=== PATIENT | female | born 1990 | race Two or more races ===

== ENCOUNTER → 2017-07-22 | Outpatient (CLI) | payer BC ==
[2017-07-22 10:18] LABS: Basophils # (auto) 0 uL; Basophils % (auto) 0.2 % (0.0-2.0); Eosinophils # (auto) 0.4 uL; Eosinophils % (auto) 4.4 % (0.0-7.0); Hematocrit 41.3 % (36.0-46.0); Lymphocytes # (auto) 1.6 uL; Lymphocytes % (auto) 17.7 % (10.0-50.0); Mean Corpuscular Hemoglobin 29.9 pg (28.0-32.0); Monocytes # (auto) 0.5 uL; Monocytes % (auto) 5.1 % (0.0-12.0); Neutrophils # (auto) 6.4 uL; Neutrophils % (auto) 72.6 % (37.0-80.0); Platelet Count (auto) 322 10^3/uL (140-450); Red Blood Cells 4.69 10^6/uL (4.0-5.20); Red Cell Distribution Width 13.8 % (11.8-14.3); White Blood Cell 8.9 10^3/uL (4.4-10.8)
[2017-07-22 10:56] LABS: Albumin 3.4 g/dL (3.4-5.0); Bilirubin, Direct 0.1 mg/dL (0-0.2); Bilirubin, Total 0.4 mg/dL (0.2-1.0); Total Protein 8.7 g/dL (6.4-8.2)
== END | disposition home or self-care (01) ==
LOC: LAB 09:36
PROVIDERS: ATTEND Obstetrics & Gynecology
DX: Z34.80 Encounter for supervision of other normal pregnancy, unspecified trimester (principal); Z20.2 Contact with and (suspected) exposure to infections with a predominantly sexual mode of transmission; Z3A.00 Weeks of gestation of pregnancy not specified
CPT/HCPCS: 36415; 80076; 83036; 84702; 85025; 86762; 86850; 86900; 86901; 87086; 87340; 87591

== ENCOUNTER → 2017-09-02 | Outpatient (CLI) | payer BC ==
[2017-09-02 11:53] LABS: Alcohol, Urine < 3.0 mg/dL (0-5); Amphetamine Screen, Urine NEGATIVE (NEGATIVE); Barbiturate Scree,Urine NEGATIVE (NEGATIVE); Benzodiazephine Screen, Urine NEGATIVE (NEGATIVE); Cannabinoid Screen, Urine NEGATIVE (NEGATIVE); Cocaine Screen, Urine NEGATIVE (NEGATIVE); Opiate Scree,Urine NEGATIVE (NEGATIVE); Phencyclidine Screen, Urine NEGATIVE (NEGATIVE)
== END | disposition home or self-care (01) ==
LOC: LAB 10:12
PROVIDERS: ATTEND Specialist
DX: O99.810 Abnormal glucose complicating pregnancy (principal); Z3A.00 Weeks of gestation of pregnancy not specified
CPT/HCPCS: 36415; 80307; 82951

== ENCOUNTER → 2017-09-23 | Outpatient (CLI) | payer BC ==
[2017-09-23 13:04] LABS: Alcohol, Urine < 3.0 mg/dL (0-5); Amphetamine Screen, Urine NEGATIVE (NEGATIVE); Barbiturate Scree,Urine NEGATIVE (NEGATIVE); Benzodiazephine Screen, Urine NEGATIVE (NEGATIVE); Cannabinoid Screen, Urine NEGATIVE (NEGATIVE); Cocaine Screen, Urine NEGATIVE (NEGATIVE); Opiate Scree,Urine NEGATIVE (NEGATIVE); Phencyclidine Screen, Urine NEGATIVE (NEGATIVE)
== END | disposition home or self-care (01) ==
LOC: LAB 11:07
PROVIDERS: ATTEND Specialist
DX: Z34.80 Encounter for supervision of other normal pregnancy, unspecified trimester (principal); Z3A.00 Weeks of gestation of pregnancy not specified
CPT/HCPCS: 80307

== ENCOUNTER 2018-02-02 22:40 | Observation (INO) | payer BC ==
[~2018-02-02] VITALS: Ht 165.1 cm; Wt 88.9 kg
[2018-02-02] MEDS ORDERED: LACTATED RINGER'S 1,000 ML IV ONE (23:23)
[2018-02-03] MEDS ORDERED: TERBUTALINE SULFATE 1 MG/ML 1ML VIAL SC ONE (00:07)
[2018-02-03] MEDS: TERBUTALINE SULFATE 1 MG/ML 1ML VIAL SC SCH ×2 (00:10→01:08)
== END 2018-02-03 01:47 | disposition home or self-care (01) | DRG 778 ==
LOC: LDRP 22:40
PROVIDERS: ADMIT Specialist; ATTEND Specialist
DX: O60.03 Preterm labor without delivery, third trimester (principal); Z3A.36 36 weeks gestation of pregnancy
CPT/HCPCS: 59025; 81002; 96360; 96361; 96372; G0378; J3105; 96365; 96366

== ENCOUNTER → 2018-02-10 | Outpatient (CLI) | payer BC ==
[~2018-02-10] MED LIST: PREN-96 PO
[2018-02-10 09:47] LABS: Basophils # (auto) 0 uL; Eosinophils # (auto) 0.2 uL; Hemoglobin 9.1 g/dL (12.2-16.2); Monocytes # (auto) 0.5 uL; Nucleated Red Blood Cells % 0.1 %
[2018-02-10 09:49] LABS: Basophils % (auto) 0.3 % (0.0-2.0); Eosinophils % (auto) 2.8 % (0.0-7.0); Hematocrit 27.6 % (36.0-46.0); Lymphocytes # (auto) 1.5 uL; Lymphocytes % (auto) 20.5 % (10.0-50.0); Mean Corpuscular Hemoglobin 23.8 pg (28.0-32.0); Mean Corpuscular Hgb Conc. 32.9 g/dL (32.0-36.0); Mean Corpuscular Volume 72.2 fL (80.0-100.0); Monocytes % (auto) 6.7 % (0.0-12.0); Neutrophils # (auto) 5.3 uL; Neutrophils % (auto) 69.7 % (37.0-80.0); Platelet Count (auto) 226 10^3/uL (140-450); Red Blood Cells 3.83 10^6/uL (4.0-5.20); Red Cell Distribution Width 16.2 % (11.8-14.3); White Blood Cell 7.6 10^3/uL (4.4-10.8)
[2018-02-11 06:05] LABS: RPR Non Reactive (Non Reactive)
== END | disposition home or self-care (01) ==
LOC: LAB 08:25
PROVIDERS: ATTEND Specialist
DX: O23.593 Infection of other part of genital tract in pregnancy, third trimester (principal); O99.810 Abnormal glucose complicating pregnancy; Z3A.37 37 weeks gestation of pregnancy
CPT/HCPCS: 36415; 85025; 86592; 87081; 87088; 87186

== ENCOUNTER 2018-02-24 13:10 | Observation (INO) | payer BC | END 2018-02-24 14:00 | disposition home or self-care (01) | DRG 782 | LOC: LDRP 13:10 | PROVIDERS: ADMIT Obstetrics & Gynecology; ATTEND Obstetrics & Gynecology | DX: O13.3 Gestational [pregnancy-induced] hypertension without significant proteinuria, third trimester (principal); O62.9 Abnormality of forces of labor, unspecified; R22.43 Localized swelling, mass and lump, lower limb, bilateral; Z3A.39 39 weeks gestation of pregnancy | CPT/HCPCS: 59025; 81002; G0378 ==

== ENCOUNTER 2018-02-28 20:55 | Inpatient (IN) | payer BC ==
[2018-02-28] MEDS ORDERED: LACT. RINGERS/OXYTOCIN 20UNITS 1,000 ML IV SCH (21:23)
[2018-02-28] MEDS ORDERED: LACTATED RINGER'S 1,000 ML IV SCH (21:23)
[2018-02-28] MEDS ORDERED: WITCH HAZEL-GLYCERIN PAD TOP PRN (21:30)
[2018-02-28] MEDS ORDERED: LIDOCAINE 2% (LOCAL ANESTH.) PF 5ml SDV IJ ONE (21:30)
[2018-02-28] MEDS ORDERED: PROMETHAZINE HCL 25 MG/ML 1ML IV PRN (21:30)
[2018-02-28] MEDS ORDERED: DERMOPLAST 60ML BOTTLE TOP PRN (21:30)
[2018-02-28] MEDS ORDERED: PENICILLIN G POT 5MIL/D5 50ML 50 ML IV ONE (21:30)
[2018-02-28] MEDS ORDERED: METHYLERGONOVINE MALEATE 0.2 MG/ML AMP IM PRN (21:30)
[2018-02-28] MEDS ORDERED: PHISODERM TOP SOLN 240ML BTL TOP PRN (21:30)
[2018-02-28] MEDS ORDERED: NALBUPHINE HCL 10 MG/1ml INJECTION IV PRN (21:30)
[2018-03-01] MEDS ORDERED: PENICILLIN G POTASSIUM 2,500,000 UNITS in D5W 5% 50 ML IV SCH (01:30)
== END 2018-02-28 22:46 | disposition home or self-care (01) | DRG 781 ==
LOC: LDRP 20:55
PROVIDERS: ADMIT Specialist; ATTEND Specialist
DX: O26.893 Other specified pregnancy related conditions, third trimester (principal); Z3A.39 39 weeks gestation of pregnancy
CPT/HCPCS: 59025; J7060

== ENCOUNTER 2018-03-01 01:05 | Observation (INO) | payer BC ==
[2018-03-02] MEDS ORDERED: PREN-96 PO (20:30)
== END 2018-03-01 01:18 | disposition home or self-care (01) | DRG 782 ==
LOC: LDRP 01:05
PROVIDERS: ADMIT Specialist; ATTEND Specialist
DX: O62.9 Abnormality of forces of labor, unspecified (principal); Z3A.39 39 weeks gestation of pregnancy
CPT/HCPCS: G0378

== ENCOUNTER 2018-03-01 10:00 | Inpatient (IN) | payer BC, MEDICAID ==
[~2018-03-01] VITALS: Ht 157.5 cm; Wt 91.2 kg
[2018-03-01] MEDS: LACTATED RINGER'S 1,000 ML IV SCH ×2 (10:35→14:41)
[2018-03-01] MEDS ORDERED: LACT. RINGERS/OXYTOCIN 20UNITS 1,000 ML IV SCH ×2 (11:16→16:39)
[2018-03-01] MEDS ORDERED: CARBOPROST TROMETHAMINE 250 MCG/1ML VIAL IM PRN (11:30)
[2018-03-01] MEDS ORDERED: LIDOCAINE 2% (LOCAL ANESTH.) PF 5ml SDV ID ONE (11:30)
[2018-03-01] MEDS ORDERED: NALBUPHINE HCL 10 MG/1ml INJECTION IV PRN (11:30)
[2018-03-01] MEDS ORDERED: DERMOPLAST 60ML BOTTLE TOP PRN (11:30)
[2018-03-01] MEDS ORDERED: WITCH HAZEL-GLYCERIN PAD TOP PRN (11:30)
[2018-03-01] MEDS ORDERED: PHISODERM TOP SOLN 240ML BTL TOP PRN (11:30)
[2018-03-01] MEDS ORDERED: METHYLERGONOVINE MALEATE 0.2 MG/ML AMP IM PRN (11:30)
[2018-03-01] MEDS ORDERED: LIDOCAINE 1% (LOCAL ANESTH.) PF 5ml SDV IJ ONE (11:30)
[2018-03-01] MEDS ORDERED: PENICILLIN G POT 5MIL/D5 50ML 50 ML IV ONE (11:45)
[2018-03-01 12:45] LABS: Basophils # (auto) 0 uL; Hemoglobin 8.7 g/dL (12.2-16.2); Mean Corpuscular Hemoglobin 22.9 pg (28.0-32.0); Monocytes # (auto) 0.4 uL; Red Blood Cells 3.81 10^6/uL (4.0-5.20)
[2018-03-01 12:47] LABS: Basophils % (auto) 0.3 % (0.0-2.0); Eosinophils # (auto) 0.1 uL; Eosinophils % (auto) 2.4 % (0.0-7.0); Hematocrit 26.9 % (36.0-46.0); Lymphocytes # (auto) 1.2 uL; Lymphocytes % (auto) 20.2 % (10.0-50.0); Mean Corpuscular Hgb Conc. 32.5 g/dL (32.0-36.0); Mean Corpuscular Volume 70.5 fL (80.0-100.0); Monocytes % (auto) 6.5 % (0.0-12.0); Neutrophils # (auto) 4.3 uL; Neutrophils % (auto) 70.6 % (37.0-80.0); Platelet Count (auto) 234 10^3/uL (140-450); Red Cell Distribution Width 16.8 % (11.8-14.3); White Blood Cell 6.1 10^3/uL (4.4-10.8)
[2018-03-01 12:51] LABS: Urine Bacteria MOD /hpf (None Seen); Urine Blood TRACE /uL (Negative); Urine Mucus FEW (None Seen); Urine Specific Gravity 1.011 (1.001-1.035); Urine WBC 12 /hpf (0 - 5)
[2018-03-01 13:04] LABS: INR 0.92 (0.9-1.15); Partial Thromboplastin Time 23.6 sec (23.78-33.04); Prothrombin Time 9.9 sec (9.27-12.13)
[2018-03-01 13:08] LABS: Albumin 2.4 g/dL (3.4-5.0); BUN/Creatinine Ratio 6.1; Bilirubin, Total 0.6 mg/dL (0.2-1.0); Calcium 7.7 mg/dL (8.5-10.1); Total Protein 6.7 g/dL (6.4-8.2)
[2018-03-01 13:11] LABS: Potassium 2.9 mmol/L (3.5-5.1)
[2018-03-01] MEDS ORDERED: POTASSIUM CHL 20 Meq TABLET PO ONE (13:45)
[2018-03-01] MEDS: POTASSIUM CHL 20MEQ/100ML 100 ML IV SCH ×2 (14:34→16:44)
[2018-03-01] MEDS ORDERED: NALOXONE HCL 0.4 MG/ML VIAL IV ONE (15:00)
[2018-03-01] MEDS ORDERED: fentaNYL W ROPIVACAINE 150 ML EPI SCH (15:00)
[2018-03-01] MEDS ORDERED: ePHEDrine SULFATE 50 MG/ML AMP IV ONE (15:00)
[2018-03-01] MEDS ORDERED: TERBUTALINE SULFATE 1 MG/ML 1ML VIAL SC ONE (16:45)
[2018-03-01] MEDS: PENICILLIN G POTASSIUM 2,500,000 UNITS in D5W 5% 50 ML IV SCH ×3 (16:55→23:30)
[2018-03-01] MEDS ORDERED: ONDANSETRON HCL 4 MG/2 ML VIAL ONE (18:51)
[2018-03-01] MEDS ORDERED: ONDANSETRON HCL 4 MG/2 ML VIAL IV PRN (19:00)
[2018-03-01] MEDS ORDERED: METHYLERGONOVINE MALEATE 0.2 MG/ML AMP IM ONE (21:57)
[2018-03-01] MEDS ORDERED: LACT. RINGERS/OXYTOCIN 20UNITS 1,000 ML IV ONE (23:45)
[2018-03-02] VITALS (32 sets, daily range): BP systolic 110–144; BP diastolic 64–92
[2018-03-02] MEDS ORDERED: LACT. RINGERS/OXYTOCIN 20UNITS 1,000 ML IV SCH
[2018-03-02 00:31] LABS: Basophils # (auto) 0 uL; Basophils % (auto) 0.2 % (0.0-2.0); Eosinophils # (auto) 0.1 uL; Hematocrit 26.5 % (36.0-46.0); Hemoglobin 8.2 g/dL (12.2-16.2); Lymphocytes # (auto) 1.9 uL; Lymphocytes % (auto) 14.7 % (10.0-50.0); Mean Corpuscular Hgb Conc. 31.1 g/dL (32.0-36.0); Mean Corpuscular Volume 70.8 fL (80.0-100.0); Monocytes # (auto) 0.6 uL; Monocytes % (auto) 4.3 % (0.0-12.0); Neutrophils # (auto) 10.5 uL; Neutrophils % (auto) 79.8 % (37.0-80.0); Platelet Count (auto) 228 10^3/uL (140-450); Red Blood Cells 3.74 10^6/uL (4.0-5.20); Red Cell Distribution Width 17.6 % (11.8-14.3); White Blood Cell 13.1 10^3/uL (4.4-10.8)
[2018-03-02] MEDS: ceFAZolin 1GM/50ML 50 ML IV SCH ×3 (00:44→16:19)
[2018-03-02] MEDS ORDERED: PROMETHAZINE HCL 25 MG/ML 1ML IM ONE (01:15)
[2018-03-02] MEDS: LACTATED RINGER'S 1,000 ML IV SCH ×2 (03:16→12:14)
[2018-03-02] MEDS: PENICILLIN G POTASSIUM 2,500,000 UNITS in D5W 5% 50 ML IV SCH ×2 (03:30→07:30)
[2018-03-02] MEDS: IBUPROFEN 600 MG TAB PO PRN ×4 (03:59→16:17)
[2018-03-02] MEDS ORDERED: ACETAMINOPHEN 325 MG TAB PO PRN (04:30)
[2018-03-02 06:06] LABS: RPR Non Reactive (Non Reactive)
[2018-03-02 10:19] LABS: Basophils # (auto) 0 uL; Eosinophils # (auto) 0.1 uL; Eosinophils % (auto) 0.6 % (0.0-7.0); Neutrophils # (auto) 8.8 uL
[2018-03-02] MEDS: DOCUSATE CALCIUM 240 MG CAP PO SCH (10:20)
[2018-03-02 10:21] LABS: Basophils % (auto) 0.3 % (0.0-2.0); Hematocrit 18.6 % (36.0-46.0); Lymphocytes # (auto) 1.3 uL; Lymphocytes % (auto) 11.7 % (10.0-50.0); Mean Corpuscular Hgb Conc. 32.6 g/dL (32.0-36.0); Mean Corpuscular Volume 73.4 fL (80.0-100.0); Monocytes # (auto) 0.7 uL; Monocytes % (auto) 6.1 % (0.0-12.0); Neutrophils % (auto) 81.3 % (37.0-80.0); Platelet Count (auto) 153 10^3/uL (140-450); Red Blood Cells 2.53 10^6/uL (4.0-5.20); Red Cell Distribution Width 18.8 % (11.8-14.3); White Blood Cell 10.8 10^3/uL (4.4-10.8)
[2018-03-02 10:28] LABS: Hemoglobin 6.1 g/dL (12.2-16.2)
[2018-03-02 10:54] LABS: Albumin 1.5 g/dL (3.4-5.0); BUN/Creatinine Ratio 6.3; Bilirubin, Total 0.7 mg/dL (0.2-1.0); Calcium 7.1 mg/dL (8.5-10.1); Potassium 3.3 mmol/L (3.5-5.1)
[2018-03-02] MEDS: POTASSIUM CHL 20 Meq TABLET PO SCH (12:12)
[2018-03-02] MEDS: HYDROcodone-ACET 5/325MG TAB PO PRN ×3 (13:59→23:23)
[2018-03-02] MEDS ORDERED: PREN-96 PO (20:30)
[2018-03-02 20:41] LABS: Basophils # (auto) 0 uL; Hemoglobin 8.4 g/dL (12.2-16.2); Monocytes # (auto) 0.8 uL; Neutrophils # (auto) 8.3 uL; Red Blood Cells 3.31 10^6/uL (4.0-5.20); White Blood Cell 11.1 10^3/uL (4.4-10.8)
[2018-03-02 20:43] LABS: Basophils % (auto) 0.3 % (0.0-2.0); Eosinophils # (auto) 0.3 uL; Eosinophils % (auto) 2.5 % (0.0-7.0); Hematocrit 25.5 % (36.0-46.0); Lymphocytes # (auto) 1.7 uL; Lymphocytes % (auto) 15.4 % (10.0-50.0); Mean Corpuscular Hemoglobin 25.3 pg (28.0-32.0); Mean Corpuscular Hgb Conc. 32.7 g/dL (32.0-36.0); Mean Corpuscular Volume 77.2 fL (80.0-100.0); Monocytes % (auto) 7.5 % (0.0-12.0); Neutrophils % (auto) 74.3 % (37.0-80.0); Platelet Count (auto) 174 10^3/uL (140-450)
[2018-03-02 20:57] LABS: Albumin 1.8 g/dL (3.4-5.0); BUN/Creatinine Ratio 6.8; Calcium 7.4 mg/dL (8.5-10.1); Potassium 3.5 mmol/L (3.5-5.1)
[2018-03-03] MEDS: ceFAZolin 1GM/50ML 50 ML IV SCH ×3 (00:20→16:01)
[2018-03-03 03:00] VITALS: BP 116/71
[2018-03-03] MEDS: HYDROcodone-ACET 5/325MG TAB PO PRN (03:36)
[2018-03-03] MEDS ORDERED: ASCORBIC ACID 500 MG TAB PO ONE (06:45)
[2018-03-03 06:50] VITALS: BP 105/72
[2018-03-03] MEDS: IBUPROFEN 600 MG TAB PO PRN ×5 (06:51→20:04)
[2018-03-03] MEDS: FERROUS SULFATE 325 MG TAB PO SCH ×2 (08:09→17:29)
[2018-03-03] MEDS ORDERED: ONDANSETRON HCL 4 MG/2 ML VIAL IV PRN (09:30)
[2018-03-03] MEDS: DOCUSATE CALCIUM 240 MG CAP PO SCH (10:01)
[2018-03-03] MEDS: POTASSIUM CHL 20 Meq TABLET PO SCH (10:01)
[2018-03-03 11:00] VITALS: BP 116/74
[2018-03-03 15:00] VITALS: BP 146/83
[2018-03-03 18:51] VITALS: BP 141/84
[2018-03-03 23:20] VITALS: BP 164/99
[2018-03-04] MEDS: ceFAZolin 1GM/50ML 50 ML IV SCH (00:30)
[2018-03-04] MEDS: IBUPROFEN 600 MG TAB PO PRN (03:06)
[2018-03-04 07:01] VITALS: BP 129/87
[2018-03-04] MEDS: FERROUS SULFATE 325 MG TAB PO SCH (08:00)
[2018-03-04] MEDS: LACTATED RINGER'S 1,000 ML IV SCH (08:10)
== END 2018-03-04 08:08 | disposition home or self-care (01) | DRG 774 ==
LOC: LDRP 10:00
PROVIDERS: ADMIT Specialist; ATTEND Specialist
PROC: 10E0XZZ Delivery of Products of Conception, External Approach (ICD-10-PCS; principal; 2018-03-02)
PROC: 3E0R3BZ Introduction of Anesthetic Agent into Spinal Canal, Percutaneous Approach (ICD-10-PCS; 2018-03-02)
PROC: 00HU33Z Insertion of Infusion Device into Spinal Canal, Percutaneous Approach (ICD-10-PCS; 2018-03-02)
PROC: 30233N1 Transfusion of Nonautologous Red Blood Cells into Peripheral Vein, Percutaneous Approach (ICD-10-PCS; 2018-03-02)
PROC: 30233L1 Transfusion of Nonautologous Fresh Plasma into Peripheral Vein, Percutaneous Approach (ICD-10-PCS; 2018-03-02)
PROC: 30233K1 Transfusion of Nonautologous Frozen Plasma into Peripheral Vein, Percutaneous Approach (ICD-10-PCS; 2018-03-02)
DX: O99.824 Streptococcus B carrier state complicating childbirth (principal); O73.0 Retained placenta without hemorrhage; O72.1 Other immediate postpartum hemorrhage; O90.81 Anemia of the puerperium; O75.89 Other specified complications of labor and delivery; M41.9 Scoliosis, unspecified; D64.9 Anemia, unspecified; Z37.0 Single live birth; Z3A.39 39 weeks gestation of pregnancy
CPT/HCPCS: 36415; 36430; 59025; 59409; 62282; 80053; 81001; 81002; 85025; 85610; 85730; 86592; 86850; 86900; 86901; 86920; 94760; 94762; 96365; 96366; 96372; 96375; A6257; J0690; J2001; J2405; J2540; J2590; J3010; J3480; J7060

== ENCOUNTER → 2018-03-27 | Outpatient (CLI) | payer BC, MEDICAID ==
[2018-03-27 11:45] LABS: Basophils # (auto) 0 uL; Monocytes # (auto) 0.4 uL; Neutrophils # (auto) 4.1 uL
[2018-03-27 11:47] LABS: Basophils % (auto) 0.6 % (0.0-2.0); Eosinophils # (auto) 0.4 uL; Eosinophils % (auto) 5.4 % (0.0-7.0); Hematocrit 35.2 % (36.0-46.0); Hemoglobin 11.4 g/dL (12.2-16.2); Lymphocytes # (auto) 1.9 uL; Lymphocytes % (auto) 27.9 % (10.0-50.0); Mean Corpuscular Hemoglobin 24.9 pg (28.0-32.0); Mean Corpuscular Hgb Conc. 32.3 g/dL (32.0-36.0); Mean Corpuscular Volume 77.1 fL (80.0-100.0); Monocytes % (auto) 6.4 % (0.0-12.0); Neutrophils % (auto) 59.7 % (37.0-80.0); Platelet Count (auto) 341 10^3/uL (140-450); Red Blood Cells 4.56 10^6/uL (4.0-5.20); White Blood Cell 6.8 10^3/uL (4.4-10.8)
[2018-03-27 11:49] LABS: Red Cell Distribution Width 20.6 % (11.8-14.3)
== END | disposition home or self-care (01) ==
LOC: LAB 10:48
PROVIDERS: ATTEND Specialist
DX: N39.0 Urinary tract infection, site not specified (principal); D64.9 Anemia, unspecified
CPT/HCPCS: 36415; 85025; 87086; 87088; 87186

== ENCOUNTER 2020-02-08 11:47 | Observation (INO) | payer MEDICAID, OTHER | END 2020-02-08 14:00 | disposition home or self-care (01) | LOC: XYW 11:47 → LDRP 12:43 | PROVIDERS: ADMIT Specialist; ATTEND Specialist | DX: O99.013 Anemia complicating pregnancy, third trimester (principal); O62.9 Abnormality of forces of labor, unspecified; Z3A.38 38 weeks gestation of pregnancy | CPT/HCPCS: 59025; 76818; 81002; G0378 ==

== ENCOUNTER 2020-02-18 12:20 | Inpatient (IN) | payer OTHER ==
[~2020-02-18] VITALS: Ht 157.5 cm; Wt 87.5 kg
[2020-02-18 13:57] LABS: Eosinophils # (auto) 0.2 10 ^3/uL (0-0.8); Hemoglobin 7.3 g/dL (12.2-16.2); Lymphocytes # (auto) 1.4 10 ^3/uL (0.4-5.4); Nucleated Red Blood Cells % 0.1 %
[2020-02-18 13:59] LABS: Basophils # (auto) 0.1 10 ^3/uL (0-0.2); Basophils % (auto) 0.9 % (0.0-2.0); Eosinophils % (auto) 3.5 % (0.0-7.0); Hematocrit 23.5 % (36.0-46.0); Lymphocytes % (auto) 23.6 % (10.0-50.0); Mean Corpuscular Hemoglobin 21.4 pg (28.0-32.0); Mean Corpuscular Hgb Conc. 31.1 g/dL (32.0-36.0); Mean Corpuscular Volume 68.8 fL (80.0-100.0); Monocytes # (auto) 0.4 10 ^3/uL (0-1.3); Neutrophils # (auto) 3.9 10 ^3/uL (1.6-8.6); Platelet Count (auto) 284 10^3/uL (140-450); Red Blood Cells 3.42 10^6/uL (4.0-5.20); Red Cell Distribution Width 17.8 % (11.8-14.3)
[2020-02-18 14:17] LABS: Albumin 2.2 g/dL (3.4-5.0); Calcium 8.4 mg/dL (8.5-10.1)
[2020-02-18 14:18] LABS: Alcohol, Urine < 3.0 mg/dL (0-10); Amphetamine Screen, Urine NEGATIVE (NEGATIVE); Barbiturate Scree,Urine NEGATIVE (NEGATIVE); Benzodiazephine Screen, Urine NEGATIVE (NEGATIVE); Cannabinoid Screen, Urine NEGATIVE (NEGATIVE); Cocaine Screen, Urine NEGATIVE (NEGATIVE); Opiate Scree,Urine NEGATIVE (NEGATIVE); Phencyclidine Screen, Urine NEGATIVE (NEGATIVE)
[2020-02-18 14:21] LABS: BUN/Creatinine Ratio 6.9; Bilirubin, Total 0.5 mg/dL (0.2-1.0); Total Protein 5.7 g/dL (6.4-8.2); Uric Acid 4.5 mg/dL (2.6-6.0)
[2020-02-18 14:28] LABS: INR 0.98 (0.9-1.15); Partial Thromboplastin Time 23.6 sec (23.0-31.2)
[2020-02-18 14:36] LABS: Potassium 2.9 mmol/L (3.5-5.1)
[2020-02-18 14:41] LABS: Urine Bacteria MOD /hpf (None Seen); Urine Blood Negative /uL (Negative); Urine Specific Gravity 1.004 (1.001-1.035); Urine WBC 14 /hpf (0 - 5)
[2020-02-18] MEDS ORDERED: PHISODERM TOP SOLN 240ML BTL TOP PRN (15:15)
[2020-02-18] MEDS ORDERED: LIDOCAINE 2%HCL (LOCAL ANESTH.) INJ 20ML MDV ID ONE (15:15)
[2020-02-18] MEDS ORDERED: WITCH HAZEL-GLYCERIN PAD TOP PRN (15:15)
[2020-02-18] MEDS ORDERED: PENICILLIN G POT 5MIL/D5 50ML 50 ML IV ONE (15:15)
[2020-02-18] MEDS ORDERED: BUTORPHANOL TARTRATE 2 MG/1 ML VIAL IV PRN (15:15)
[2020-02-18] MEDS ORDERED: DERMOPLAST 60ML BOTTLE TOP PRN (15:15)
[2020-02-18] MEDS ORDERED: POTASSIUM CHLORIDE 40 MEQ in D5W 5% 1,000 ML IV SCH (15:30)
[2020-02-18] MEDS ORDERED: D5W/LACTATED RINGERS 1,000 ML IV SCH (16:15)
[2020-02-18] MEDS ORDERED: POTASSIUM CHL 20MEQ/100ML 200 ML IV ONE (16:26)
[2020-02-18] MEDS: POTASSIUM CHL 20MEQ/100ML 100 ML IV SCH ×2 (16:28→18:41)
[2020-02-18] MEDS ORDERED: miSOPROStol 100 mcg TAB PR PRN (18:15)
[2020-02-18] MEDS ORDERED: miSOPROStol 100 mcg TAB SL PRN (18:15)
[2020-02-18] MEDS ORDERED: CARBOPROST TROMETHAMINE 250 MCG/1ML VIAL IM PRN (18:15)
[2020-02-18] MEDS ORDERED: PENICILLIN G POTASSIUM 2,500,000 UNITS in D5W 5% 50 ML IV SCH (19:15)
[2020-02-18] MEDS: PENICILLIN G POTASSIUM 2,500,000 UNITS in D5W 5% 50 ML IV SCH (20:38)
[2020-02-18] MEDS ORDERED: LACTATED RINGER'S 1,000 ML IV ONE (22:34)
[2020-02-18] MEDS ORDERED: LACTATED RINGER'S 500 ML IV ONE (22:34)
[2020-02-18] MEDS ORDERED: LACT. RINGERS/OXYTOCIN 20UNITS 1,000 ML IV SCH (22:45)
[2020-02-18] MEDS ORDERED: ROPIVACAINE HCL 100 ML EPI SCH (22:45)
[2020-02-18] MEDS ORDERED: ePHEDrine SULFATE 50 MG/ML AMP IV ONE (22:45)
[2020-02-18] MEDS ORDERED: fentaNYL CITRATE 100 MCG/2 ML VL IV ONE (22:45)
[2020-02-18] MEDS ORDERED: NALOXONE HCL 0.4 MG/ML VIAL IV ONE (22:45)
[2020-02-18] MEDS ORDERED: ALUM & MAG HYDROX-SIMETH LIQ(MAALOX) 30 ML PO ONE ×2 (23:30→23:41)
[2020-02-18] MEDS: ROPIVACAINE HCL 100 ML EPI SCH (23:42)
[2020-02-19] MEDS: PENICILLIN G POTASSIUM 2,500,000 UNITS in D5W 5% 50 ML IV SCH ×5 (00:34→17:00)
[2020-02-19] MEDS ORDERED: ALUM & MAG HYDROX-SIMETH LIQ(MAALOX) 30 ML PO ONE (04:45)
[2020-02-19 05:11] LABS: RPR Non Reactive (Non Reactive)
[2020-02-19 06:09] LABS: Rubella Antibodies, IgG 1.53 index (Immune >0.99)
[2020-02-19] MEDS: ROPIVACAINE HCL 100 ML EPI SCH ×2 (06:46→12:10)
[2020-02-19] MEDS ORDERED: ONDANSETRON HCL 4 MG/2 ML VIAL IV ONE ×2 (09:30→12:30)
[2020-02-19] MEDS ORDERED: CARBOPROST TROMETHAMINE 250 MCG/1ML VIAL IM ONE (12:30)
[2020-02-19] MEDS ORDERED: DIPHENOXYLATE W/ATROPINE 2.5 MG TAB PO ONE (12:30)
[2020-02-19 12:52] VITALS: BP 127/82
[2020-02-19 13:34] VITALS: BP 137/91
[2020-02-19] MEDS ORDERED: SUCCINYLCHOLINE CHLORIDE 20 MG/ML 10ML VIAL IV ONE (13:34)
[2020-02-19] MEDS ORDERED: LIDOCAINE 1% (LOCAL ANESTH.) PF 5ml SDV ONE (13:34)
[2020-02-19] MEDS ORDERED: MIDAZOLAM HCL 1MG/1ML-2 ML VIAL ONE (13:36)
[2020-02-19] MEDS ORDERED: METHYLERGONOVINE MALEATE 0.2 MG/ML AMP IM ONE (13:49)
[2020-02-19] MEDS ORDERED: ROCURONIUM 10MG/ML 10ML VIAL IV ONE (13:54)
[2020-02-19] MEDS ORDERED: GLYCOPYRROLATE 0.2 MG/ML 1ML VIAL ONE ×2 (14:13→14:15)
[2020-02-19] MEDS ORDERED: NEOSTIGMINE 1 MG/ML INJ (10mg/10ML VIAL) ONE (14:13)
[2020-02-19] MEDS ORDERED: METOCLOPRAMIDE HCL 5MG/ml INJ 2ml VIAL ONE (14:14)
[2020-02-19] MEDS ORDERED: ESMOLOL HCL (10MG/ML) 10 ML VIAL IV ONE (14:15)
[2020-02-19] MEDS ORDERED: ETOMIDATE (2MG/ML) 20ML VIAL IV ONE (14:15)
[2020-02-19 14:21] LABS: Basophils # (auto) 0 10 ^3/uL (0-0.2); Eosinophils # (auto) 0 10 ^3/uL (0-0.8); Hematocrit 43.6 % (36.0-46.0); Neutrophils # (auto) 2.8 10 ^3/uL (1.6-8.6); Nucleated Red Blood Cells % 0.2 %; White Blood Cell 4.1 10^3/uL (4.4-10.8)
[2020-02-19 14:22] LABS: Basophils % (auto) 0.6 % (0.0-2.0); Eosinophils % (auto) 1.1 % (0.0-7.0); Hemoglobin 13.3 g/dL (12.2-16.2); Lymphocytes % (auto) 24.3 % (10.0-50.0); Mean Corpuscular Hemoglobin 26.5 pg (28.0-32.0); Mean Corpuscular Hgb Conc. 30.5 g/dL (32.0-36.0); Mean Corpuscular Volume 86.7 fL (80.0-100.0); Monocytes # (auto) 0.2 10 ^3/uL (0-1.3); Platelet Count (auto) 109 10^3/uL (140-450); Red Blood Cells 5.03 10^6/uL (4.0-5.20)
[2020-02-19 14:35] LABS: Red Cell Distribution Width 24.6 % (11.8-14.3)
[2020-02-19 14:36] LABS: INR 1.39 (0.9-1.15)
[2020-02-19] MEDS ORDERED: ONDANSETRON HCL 4 MG/2 ML VIAL IV PRN ×2 (14:45→15:00)
[2020-02-19] MEDS ORDERED: NALOXONE HCL 0.4 MG/ML VIAL IV PRN (15:00)
[2020-02-19] MEDS ORDERED: HYDROmorphone HCL 2 MG/ML VL IV PRN ×2 (15:00)
--- NOTE | 2020-02-19 16:00 | NUR ---
PT brought to room LDRP5 from PACU. No signs of distress noted.
[2020-02-19] MEDS: IBUPROFEN 600 MG TAB PO PRN ×2 (16:57→20:50)
--- NOTE | 2020-02-19 17:21 | NUR ---
Pt is a 29 yo female that is a part of a surrogacy arrangement. Pt presented to [facility] with her spouse and delivered. Parents presented to facility and brought court ordered paperwork regarding surrogacy arrangement. Paperwork reviewed and appears appropriate. Discussed with pt surrogate arrangements and she confirmed her participation and agreeance with arrangments. Pt states she will be returning home with her , who will be assisting her in her recovery. Spoke with new mother of baby and she confirmed all needs met for baby, i.e. car seat, clothes, diapers, and bottles. Verbalized good support system for assistance. Notified charge Solange pt and baby cleared by . Addendum: 02/19/20 at 1727 by MISHEL WERNER Amended: Links added.
[2020-02-19 17:26] LABS: Hemoglobin 7.7 g/dL (12.2-16.2); Lymphocytes # (auto) 1.1 10 ^3/uL (0.4-5.4); Neutrophils # (auto) 12.3 10 ^3/uL (1.6-8.6); Red Blood Cells 3.37 10^6/uL (4.0-5.20)
[2020-02-19 17:28] LABS: Basophils # (auto) 0 10 ^3/uL (0-0.2); Basophils % (auto) 0.2 % (0.0-2.0); Eosinophils # (auto) 0.1 10 ^3/uL (0-0.8); Eosinophils % (auto) 0.4 % (0.0-7.0); Hematocrit 24.3 % (36.0-46.0); Lymphocytes % (auto) 7.3 % (10.0-50.0); Mean Corpuscular Hemoglobin 22.8 pg (28.0-32.0); Mean Corpuscular Hgb Conc. 31.8 g/dL (32.0-36.0); Mean Corpuscular Volume 71.9 fL (80.0-100.0); Monocytes # (auto) 0.9 10 ^3/uL (0-1.3); Monocytes % (auto) 6.2 % (0.0-12.0); Neutrophils % (auto) 85.9 % (37.0-80.0); Platelet Count (auto) 234 10^3/uL (140-450); Red Cell Distribution Width 22.5 % (11.8-14.3); White Blood Cell 14.3 10^3/uL (4.4-10.8)
[2020-02-19 18:18] LABS: INR 1.06 (0.9-1.15)
[2020-02-19 18:31] VITALS: BP 111/66
--- NOTE | 2020-02-19 19:01 | NUR ---
THIS RN CHARTED UNDER Stephanie GUSMAN BY MISTAKE FROM [id number].
--- NOTE | 2020-02-19 19:57 | NUR ---
CALL PLACED TO DR MICHAUD. RESULTS GIVEN OF PT 11.2, INR 1.06, D DIMER RESULTS OF 12.[address] MICHAUD VERBALIZES UNDERSTANDING. ORDERS RECEIVED TO DC EPIDURAL CATHETER AT THIS TIME.
--- NOTE | 2020-02-19 21:37 | NUR ---
Ambulation: Patient OOB with standby assistance by RN. Patient ambulated to bathroom with steady gait. 16FR camarillo cath still in place and draining to gravity. Pericare teaching provided with returned demonstration by patient. Clean gown provided and bed linen changed. Patient ambulated back to bed with steady gait and no distress noted. EPIDURAL PUMP REMAINS OFF AT THIS TIME. Vol Remainin.4ml Vol Infused: 19.6 1/8 boluses administered by patient. EPIDURAL CATHETER REMOVED VIA CLEAN TECHNIQUE AT THIS TIME. BLUE CATHETER TIP INTACT AND VISUALIZED BY THIS RN AND PATIENT. PT TOLERATED PROCEDURE WELL. Addendum: 02/20/20 at 0318 by PATRIC XAVIER RN RN PRESSURE DRESSING APPLIED TO EPIDURAL CATH SITE. NO DRAINAGE NOTED.
[2020-02-19 22:59] VITALS: BP 120/77
[2020-02-20] MEDS: IBUPROFEN 600 MG TAB PO PRN ×5 (00:34→21:02)
[2020-02-20 03:13] VITALS: BP 116/74
--- NOTE | 2020-02-20 03:45 | NUR ---
CALL PLACED TO DR ARENAS. SBAR GIVEN INCLUDING GOLF BALL SIZED CLOT UPON PERICARE, FUNDUS FIRM AT UMBILICUS WITH SMALL BLEEDING. ALL VS WNL. URINE OUTPUT AT 60ML/HR, SLIGHT BLOOD TINGED. ORDERS RECEIVED TO SL PT AT THIS TIME CONTINUE WITH RICARDO.
[2020-02-20 07:00] VITALS: BP 122/78
--- NOTE | 2020-02-20 08:00 | NUR ---
Dr Jeffrey at nursing station. Updated on patient status. Informed of camarillo catheter in place, large half dollar size clot at 0430 when patient ambulated to the restroom, urine was blood tinged at that time, patient received 3 units of PRBC and 1 dose of plasma yesterday. CBC results reviewed Hgb 7.7 hct 24.3, plat 234, WBC 14.3. Verbalized understanding. Received orders for CBC now, dc camarillo catheter, Iron 125mg IV daily x2 doses, Maalox 30mg PO q 8 prn for heartburn. Addendum: 02/20/20 at 1637 by ENDY CARNEY RN Amended: Links added.
[2020-02-20] MEDS ORDERED: ALUM & MAG HYDROX-SIMETH LIQ(MAALOX) 30 ML PO PRN (08:15)
--- NOTE | 2020-02-20 08:25 | NUR ---
RICARDO CATH REMOVED, PT TOLERATED WELL, 200 ML'S NOTED.
[2020-02-20] MEDS ORDERED: POTASSIUM CHL 20 Meq TABLET PO ONE (08:30)
[2020-02-20 09:31] LABS: Basophils # (auto) 0.1 10 ^3/uL (0-0.2); Lymphocytes # (auto) 2.5 10 ^3/uL (0.4-5.4); White Blood Cell 12.8 10^3/uL (4.4-10.8)
[2020-02-20 09:33] LABS: Basophils % (auto) 0.8 % (0.0-2.0); Eosinophils # (auto) 0.4 10 ^3/uL (0-0.8); Eosinophils % (auto) 3.2 % (0.0-7.0); Hematocrit 20.5 % (36.0-46.0); Hemoglobin 7.1 g/dL (12.2-16.2); Lymphocytes % (auto) 19.5 % (10.0-50.0); Mean Corpuscular Hemoglobin 24.8 pg (28.0-32.0); Mean Corpuscular Hgb Conc. 34.8 g/dL (32.0-36.0); Mean Corpuscular Volume 71.3 fL (80.0-100.0); Monocytes # (auto) 0.8 10 ^3/uL (0-1.3); Monocytes % (auto) 6.4 % (0.0-12.0); Neutrophils % (auto) 70.1 % (37.0-80.0); Platelet Count (auto) 228 10^3/uL (140-450); Red Blood Cells 2.88 10^6/uL (4.0-5.20)
[2020-02-20 09:34] LABS: Red Cell Distribution Width 22.3 % (11.8-14.3)
[2020-02-20 11:00] VITALS: BP 112/65
--- NOTE | 2020-02-20 11:04 | NUR ---
Dr Matos called regarding CBC results. Informed WBC 12.8, hgb 7.1, hct 20.[address] Jeffrey ordered Iron 125mg IV daily, keflex PO during morning rounds. Verbalized understanding. Stated to continue with same plan of care.
[2020-02-20] MEDS: CEPHALEXIN 250 MG CAP PO SCH ×3 (11:47→23:40)
[2020-02-20] MEDS: SODIUM FERR GLUC 62.5MG/5ML 125 MG in SODIUM CHL 0.9% 100 ML IV SCH (11:48)
--- NOTE | 2020-02-20 12:15 | NUR ---
IV removal IV DC'd with sterile technique, catheter fully intact. Pressure dressing applied to site. Patient tolerated procedure well. Discharged with aftercare instructions per MD. Addendum: 02/20/20 at 1215 by ENDY CARNEY RN Amended: Links added.
--- NOTE | 2020-02-20 12:35 | NUR ---
IV removal IV DC'd with sterile technique, catheter fully intact. Pressure dressing applied to site. Patient tolerated procedure well. Discharged with aftercare instructions per MD. IV insertion IV access obtained, via clean sterile technique by inserting 20 gauge catheter on the left forearm after 1 attempt. IV secured properly. No trauma to site. Patient tolerated well. Site date, timed and initialed. Addendum: 02/20/20 at 1243 by ENDY CARNEY RN Amended: Links added.
[2020-02-20 15:00] VITALS: BP 121/77
[2020-02-20 18:30] VITALS: BP 124/75
[2020-02-20 23:42] VITALS: BP 126/81
[2020-02-21] VITALS (12 sets, daily range): BP systolic 118–145; BP diastolic 74–102
[2020-02-21] MEDS: CEPHALEXIN 250 MG CAP PO SCH ×2 (05:43→12:54)
[2020-02-21 06:42] LABS: Red Blood Cells 2.46 10^6/uL (4.0-5.20)
[2020-02-21 06:44] LABS: Hematocrit 17.9 % (36.0-46.0); Mean Corpuscular Hgb Conc. 33.1 g/dL (32.0-36.0); Mean Corpuscular Volume 72.6 fL (80.0-100.0); Platelet Count (auto) 229 10^3/uL (140-450); White Blood Cell 8.8 10^3/uL (4.4-10.8)
--- NOTE | 2020-02-21 06:45 | NUR ---
Dr. Jeffrey notified of critical lab value Hemoglobin 5.9. Orders received for 1 bag prbc and repeat cbc at 1100.
[2020-02-21 06:48] LABS: Hemoglobin 5.9 g/dL (12.2-16.2); Red Cell Distribution Width 22.4 % (11.8-14.3)
[2020-02-21 06:50] LABS: Basophils % (manual) 0 (0.0-2.0); Blast Cells 0; Metamyelocytes % 0; Myelocytes % 0; Promyelocytes % 0; Reactive Lymphocytes 0
[2020-02-21 07:04] LABS: Potassium 3.2 mmol/L (3.5-5.1)
[2020-02-21 07:14] LABS: Albumin 1.8 g/dL (3.4-5.0); BUN/Creatinine Ratio 10.6; Bilirubin, Total 0.3 mg/dL (0.2-1.0); Calcium 7.4 mg/dL (8.5-10.1); Total Protein 4.6 g/dL (6.4-8.2)
[2020-02-21 09:27] LABS: Band Neutrophils % (manual) 2; Eosinophils % (manual) 6 (0-7); Lymphocytes % (manual) 13 (10.0-50.0); Monocytes % (manual) 4 (0-12)
[2020-02-21 10:57] LABS: Basophils # (auto) 0.1 10 ^3/uL (0-0.2); Basophils % (auto) 0.7 % (0.0-2.0); Eosinophils # (auto) 0.4 10 ^3/uL (0-0.8); Mean Corpuscular Hgb Conc. 32.3 g/dL (32.0-36.0); Monocytes # (auto) 0.5 10 ^3/uL (0-1.3); Neutrophils # (auto) 5.7 10 ^3/uL (1.6-8.6); White Blood Cell 8.4 10^3/uL (4.4-10.8)
[2020-02-21 10:59] LABS: Eosinophils % (auto) 5.1 % (0.0-7.0); Hematocrit 20.5 % (36.0-46.0); Lymphocytes # (auto) 1.7 10 ^3/uL (0.4-5.4); Lymphocytes % (auto) 20.1 % (10.0-50.0); Mean Corpuscular Hemoglobin 24.1 pg (28.0-32.0); Mean Corpuscular Volume 74.7 fL (80.0-100.0); Monocytes % (auto) 6.2 % (0.0-12.0); Neutrophils % (auto) 67.9 % (37.0-80.0); Nucleated Red Blood Cells % 0.1 %; Platelet Count (auto) 200 10^3/uL (140-450); Red Blood Cells 2.74 10^6/uL (4.0-5.20)
[2020-02-21 11:00] LABS: Hemoglobin 6.6 g/dL (12.2-16.2)
--- NOTE | 2020-02-21 11:00 | NUR ---
Dr. Jeffrey notified of critical lab value Hemoglobin 6.6. Orders received for 1 bag prbc and repeat cbc at 1600.
[2020-02-21 11:01] LABS: Red Cell Distribution Width 22.7 % (11.8-14.3)
[2020-02-21] MEDS: SODIUM FERR GLUC 62.5MG/5ML 125 MG in SODIUM CHL 0.9% 100 ML IV SCH (12:52)
[2020-02-21] MEDS: IBUPROFEN 600 MG TAB PO PRN (13:22)
[2020-02-21 15:55] LABS: Basophils # (auto) 0.1 10 ^3/uL (0-0.2); Basophils % (auto) 0.8 % (0.0-2.0); Eosinophils # (auto) 0.5 10 ^3/uL (0-0.8); Mean Corpuscular Volume 76.8 fL (80.0-100.0)
[2020-02-21 15:56] LABS: Hematocrit 23.5 % (36.0-46.0); Hemoglobin 7.6 g/dL (12.2-16.2); Lymphocytes # (auto) 1.7 10 ^3/uL (0.4-5.4); Mean Corpuscular Hemoglobin 24.9 pg (28.0-32.0); Mean Corpuscular Hgb Conc. 32.5 g/dL (32.0-36.0); Monocytes # (auto) 0.6 10 ^3/uL (0-1.3); Monocytes % (auto) 6.4 % (0.0-12.0); Neutrophils # (auto) 6.2 10 ^3/uL (1.6-8.6); Neutrophils % (auto) 68.8 % (37.0-80.0); Platelet Count (auto) 209 10^3/uL (140-450); Red Blood Cells 3.06 10^6/uL (4.0-5.20)
[2020-02-21 16:06] LABS: Red Cell Distribution Width 23.3 % (11.8-14.3)
--- NOTE | 2020-02-21 16:40 | NUR ---
Dr. Jeffrey updated on pt hemoglobin of 7.6 Informed pt is requesting to go home if possible, D/C orders received and orders received to call in Iron 325mg bid#60 for pt.
--- NOTE | 2020-02-21 17:02 | NUR ---
Discharge: Discharge instructions given as ordered. Pt encouraged to follow up with [facility] as instructed. All questions and concerns addressed. Patient verbalized understanding. Medication reconciliation completed and copy given to patient. All required/requested vaccines given and copies of vaccinations given to patient. Patient encouraged to prepare to depart unit.
--- NOTE | 2020-02-21 17:15 | NUR ---
Discharge: Patient taken to vehicle via ambulating with all personal belongings, accompanied by staff and family member. No distress noted at time of departure, no adverse changes in status since initial assessment.
--- NOTE | 2020-02-21 17:35 | NUR ---
Prescription called into pts pharmacy [facility] [address] iron 325mg bid #60 with 3 refils
== END 2020-02-21 17:15 | disposition home or self-care (01) | DRG 806 ==
LOC: LDRP 12:20 → OBSVTOIN 14:55 → LDRP 02-20 03:54
PROVIDERS: ADMIT Specialist; ATTEND Specialist
PROC: 10D17Z9 Manual Extraction of Products of Conception, Retained, Via Natural or Artificial Opening (ICD-10-PCS; 2020-02-19)
PROC: 30233K1 Transfusion of Nonautologous Frozen Plasma into Peripheral Vein, Percutaneous Approach (ICD-10-PCS; 2020-02-19)
PROC: 30233N1 Transfusion of Nonautologous Red Blood Cells into Peripheral Vein, Percutaneous Approach (ICD-10-PCS; 2020-02-19)
PROC: 10907ZC Drainage of Amniotic Fluid, Therapeutic from Products of Conception, Via Natural or Artificial Opening (ICD-10-PCS; 2020-02-19)
PROC: 3E033VJ Introduction of Other Hormone into Peripheral Vein, Percutaneous Approach (ICD-10-PCS; 2020-02-19)
PROC: 3E0R3BZ Introduction of Anesthetic Agent into Spinal Canal, Percutaneous Approach (ICD-10-PCS; 2020-02-19)
PROC: 00HU33Z Insertion of Infusion Device into Spinal Canal, Percutaneous Approach (ICD-10-PCS; 2020-02-19)
PROC: 10E0XZZ Delivery of Products of Conception, External Approach (ICD-10-PCS; principal; 2020-02-19 13:40)
DX: O99.02 Anemia complicating childbirth (principal); O72.1 Other immediate postpartum hemorrhage; Z37.0 Single live birth; O72.0 Third-stage hemorrhage; O99.284 Endocrine, nutritional and metabolic diseases complicating childbirth; O13.4 Gestational [pregnancy-induced] hypertension without significant proteinuria, complicating childbirth; O99.824 Streptococcus B carrier state complicating childbirth; E16.2 Hypoglycemia, unspecified; E87.6 Hypokalemia; D64.9 Anemia, unspecified; Z3A.39 39 weeks gestation of pregnancy; Z87.59 Personal history of other complications of pregnancy, childbirth and the puerperium
CPT/HCPCS: 36415; 36430; 59025; 59409; 62282; 80053; 80307; 81001; 81002; 84112; 84132; 84550; 85007; 85025; 85027; 85379; 85384; 85610; 85730; 86592; 86762; 86850; 86900; 86901; 86920; 94760; 96360; 96361; 96365; 96366; G0378; J0330; J2250; J2405; J2540; J2590; J3480; J7060